=== PATIENT | male | born 1940 | race Caucasian/White ===

== ENCOUNTER 2016-04-15 09:49 | Outpatient (RCR) | payer MEDICARE | END 2016-04-29 | LOC: M PT 09:49 | PROVIDERS: ATTEND Family Medicine | DX: M25.552 Pain in left hip (principal) | CPT/HCPCS: 97110; 97161; G8978; G8979; G8980 ==

== ENCOUNTER → 2016-05-13 | Outpatient (CLI) | payer MEDICARE ==
[~2016-05-13] MED LIST: ASPI1TAB PO; ATOR1TAB18 PO; CARV6.25 PO; CHLO25TA PO; FLOM5CAP PO; HYDR25T PO; LISI-538 PO; PROS5TAB PO; SERT25TA85 PO
--- NOTE | 2016-05-13 09:16 | REP ---
Clinical: Preoperative assessment . Comparison: 12/10/2005 of Technique: PA and lateral. Findings: The mediastinum and cardiac silhouette are normal. The lung zurita are clear and without acute consolidation, effusion, or pneumothorax. The skeletal structures are intact and normal. Impression: 1. No acute cardiopulmonary process. Signed by Carlos Yi MD 05/13/2016 09:07 A
[2016-05-13 09:50] LABS: INR 0.98
== END ==
LOC: M LAB 08:38
PROVIDERS: ATTEND Family Medicine
DX: Z01.818 Encounter for other preprocedural examination (principal); K40.91 Unilateral inguinal hernia, without obstruction or gangrene, recurrent

== ENCOUNTER → 2016-05-13 | Outpatient (CLI) | payer MEDICARE | LOC: M CARPUL 14:17 | PROVIDERS: ATTEND Family Medicine | DX: Z01.818 Encounter for other preprocedural examination (principal); K40.91 Unilateral inguinal hernia, without obstruction or gangrene, recurrent; I25.2 Old myocardial infarction; Z79.82 Long term (current) use of aspirin; Z79.899 Other long term (current) drug therapy; Z87.891 Personal history of nicotine dependence ==

== ENCOUNTER → 2016-10-10 | Outpatient (CLI) | payer MEDICARE ==
[~2016-10-10] MED LIST changes: -ATOR1TAB18 PO; +ATOR80TA59 PO; +HYDR-3363 PO; -HYDR25T PO; +SERT25TA PO; -SERT25TA85 PO
[2016-10-10 09:13] LABS: MEAN CORPUSCULAR HEMOGLOBIN 34.8 pg (27.0-33.0); MEAN CORPUSCULAR HGB CONC 34.2 g/dl (32.0-36.5); MEAN CORPUSCULAR VOLUME 101.7 fl (80.0-96.0); RED CELL DISTRIBUTION WIDTH 12.8 % (11.5-14.5); WHITE BLOOD COUNT 8.2 K/mm3 (4.0-10.0)
[2016-10-10 09:30] LABS: ALBUMIN 3.6 GM/DL (3.2-5.2); ALBUMIN/GLOBULIN RATIO 1.13 (1.00-1.93); ALKALINE PHOSPHATASE 79 U/L (45-117); ALT/SGPT 41 U/L (12-78); ANION GAP 4 MEQ/L (8-16); AST/SGOT 27 U/L (15-37); BILIRUBIN,TOTAL 0.7 MG/DL (0.2-1.0); BLOOD UREA NITROGEN 14 MG/DL (7-18); CALCIUM LEVEL 8.7 MG/DL (8.8-10.2); CARBON DIOXIDE LEVEL 31 MEQ/L (21-32); CHLORIDE LEVEL 102 MEQ/L (98-107); CREATININE FOR GFR 0.89 MG/DL (0.70-1.30); GLOMERULAR FILTRATION RATE > 60.0 (>42); GLUCOSE, FASTING 83 MG/DL (83-110); POTASSIUM SERUM 4.4 MEQ/L (3.5-5.1); SODIUM LEVEL 137 MEQ/L (136-145); TOTAL PROTEIN 6.8 GM/DL (6.4-8.2)
== END ==
LOC: M LAB 08:17
PROVIDERS: ATTEND Anesthesiology
DX: Z01.818 Encounter for other preprocedural examination (principal); I25.10 Atherosclerotic heart disease of native coronary artery without angina pectoris; N40.0 Benign prostatic hyperplasia without lower urinary tract symptoms; E78.00 Pure hypercholesterolemia, unspecified

== ENCOUNTER → 2016-10-14 | Day surgery (SDC) | payer MEDICARE ==
[~2016-10-14] VITALS: Ht 177.8 cm; Wt 63.5 kg
[~2016-10-14] MED LIST changes: +GLYCOPYRROLATE INJ 0.2 MG/ML 2 ML VIAL As Ordered ONE; +LIDOCAINE 2% INJ 100 MG/5 ML SDV (FOR ANES.) As Ordered ONE; +LR 1,000 ML IV ONE; +LR 1,000 ML IV SCH; +MIDAZOLAM INJ 2 MG/2 ML VIAL (J2250) As Ordered ONE; +MORPHINE 2 MG/ML 1ML SYRINGE IV PRN; +NEOSTIGMINE 1MG/ML 5 ML SYRINGE (J2710) As Ordered ONE; +NORCO, ANEXSIA 5/325MG TABLET (HYDROcodone/ACETAMINOPHEN) PO PRN; +ONDANSETRON 4MG/2ML VIAL (J2405) As Ordered ONE; +ONDANSETRON 4MG/2ML VIAL (J2405) IV PRN; +PERCOCET 5MG/325MG TAB PO PRN; +PROPOFOL 200 MG/20 ML VIAL As Ordered ONE; +ROCURONIUM BROMIDE 50 MG/5 ML VIAL/SYRINGE As Ordered ONE; +SUGAMMADEX SODIUM 500 MG/5 ML VIAL (BRIDION) As Ordered ONE; +ceFAZolin 1GM INJ (J0690) As Ordered ONE; +ceFAZolin SOD 1 GM in D5W MINI-BAG PLUS 50 ML IV ONE; +dexameTHASONE 4 MG/ML 1ML VIAL (J1100) As Ordered ONE; +ePHEDrine SULFATE 25 MG/5 ML(5MG/ML) SYRINGE As Ordered ONE; +fentaNYL 100 MCG/2 ML INJECTION (J3010) As Ordered ONE; +fentaNYL 100 MCG/2 ML INJECTION (J3010) IV PRN
[2016-10-14] MEDS: BUPIVACAINE/EPIN 0.25% 30 ML VIAL As Ordered ONE (11:59)
--- NOTE | 2016-10-14 12:34 | RO ---
DATE OF PROCEDURE: 10/14/2016 PREOPERATIVE DIAGNOSIS: Right inguinal hernia. POSTOPERATIVE DIAGNOSIS: Right inguinal hernia (direct and femoral, both incarcerated). PROCEDURE: Laparoscopic right inguinal hernia repair with 3-D Max mesh (TEPP). SURGEON: Jone Mccormack MD ANESTHESIA: General endotracheal anesthesia. ESTIMATED BLOOD LOSS: Minimal. FLUIDS: Crystalloid. DESCRIPTION OF PROCEDURE: The patient was brought to the operating room and was given general anesthesia. After adequate anesthesia and preoperative antibiotics were given, the patient was prepped and draped in the usual sterile fashion. Next, a periumbilical incision was made with skin knife. Blunt dissection was carried down to fascia. Fascia was incised longitudinally with the electrocautery and the dissection posterior to the rectus muscle was performed by finger dissection and then the balloon dissector was placed in the preperitoneal space and insufflated under direct visualization. Stationary balloon was placed at the umbilicus and under direct visualization two 5 mm trocars were placed. Next, the right inguinal area was dissected out after first going down to the level of the posterior aspect of pubis, visualizing Ming's ligament bilaterally. The posterior bump was appreciated on the pubis. This was followed down to the right side. Following this down along this area was a direct inguinal hernia that was appreciated medial to the vessels. This was taken down using blunt dissection and some electrocautery on the adhesions but the hernia sac was not able to be reduced without tension and eventually this was removed out of the hernia site. Attention was turned lateral to the cord structures and dissection was performed laterally working myself medially. There was very attenuated peritoneum in this area and the portion of the cecum could be appreciated in this area. The distal portion of the peritoneum was adherent to the cord structures and was taken down with hook cautery, taking care to preserve the vessels in the vas. Next, after this was mobilized, it was obvious there were still structures overlying the femoral canal and the medial aspect of Ming's. Following this up medial to the vessels there was an obvious femoral hernia as well. Unfortunately, this was quite incarcerated and needed be partially transected to be delivered back into the preperitoneal space. Once this was eventually mobilized into the preperitoneal space, the 3-D Max mesh was placed on the pubis, lateral aspect of Ming's, and on the tail of the mesh as well. The patient had some mild general oozing from some of the raw surfaces at the posterior aspect of the rectus muscle only and the dissected preperitoneal fat that had come out of the direct hernia, as well as the femoral hernia and thus I used some of this all across this area. Revealed no active bleeding. The preperitoneal space was desufflated under direct visualization. #0 Vicryl was used close fascia at the umbilicus and all incisions were closed with #4-0 Vicryl. Steri-Strips and dry sterile dressing were applied. The patient was awakened, extubated, brought to the recovery room awake, alert, hemodynamically stable. Sponge and needle counts correct times two.
[2016-10-14] MEDS: HYDROmorphone HCL 1 MG/ML SYRINGE (J1170) IV PRN ×5 (12:55→13:15)
[2016-10-14 14:45] VITALS: BP 136/83
== END | disposition home or self-care (01) ==
LOC: M SDC 09:34
PROVIDERS: ATTEND Surgery
DX: K40.31 Unilateral inguinal hernia, with obstruction, without gangrene, recurrent (principal); K41.30 Unilateral femoral hernia, with obstruction, without gangrene, not specified as recurrent; I25.10 Atherosclerotic heart disease of native coronary artery without angina pectoris; I25.2 Old myocardial infarction; Z98.61 Coronary angioplasty status; Z91.030 Bee allergy status; Z79.82 Long term (current) use of aspirin; Z79.899 Other long term (current) drug therapy; I10 Essential (primary) hypertension; E78.5 Hyperlipidemia, unspecified; N40.0 Benign prostatic hyperplasia without lower urinary tract symptoms; F17.210 Nicotine dependence, cigarettes, uncomplicated
CPT/HCPCS: 49650; A6024; C1781; J0690; J1100; J1170; J2250; J2405; J3010

== ENCOUNTER 2016-12-04 06:59 | Outpatient (CLI) | payer MEDICARE ==
[~2016-12-04] VITALS: Ht 177.8 cm; Wt 63.5 kg
[~2016-12-04 06:59] MED LIST changes: -GLYCOPYRROLATE INJ 0.2 MG/ML 2 ML VIAL As Ordered ONE; -LIDOCAINE 2% INJ 100 MG/5 ML SDV (FOR ANES.) As Ordered ONE; -LR 1,000 ML IV ONE; -LR 1,000 ML IV SCH; -MIDAZOLAM INJ 2 MG/2 ML VIAL (J2250) As Ordered ONE; -MORPHINE 2 MG/ML 1ML SYRINGE IV PRN; -NEOSTIGMINE 1MG/ML 5 ML SYRINGE (J2710) As Ordered ONE; -NORCO, ANEXSIA 5/325MG TABLET (HYDROcodone/ACETAMINOPHEN) PO PRN; -ONDANSETRON 4MG/2ML VIAL (J2405) As Ordered ONE; -ONDANSETRON 4MG/2ML VIAL (J2405) IV PRN; -PERCOCET 5MG/325MG TAB PO PRN; -PROPOFOL 200 MG/20 ML VIAL As Ordered ONE; -ROCURONIUM BROMIDE 50 MG/5 ML VIAL/SYRINGE As Ordered ONE; -SUGAMMADEX SODIUM 500 MG/5 ML VIAL (BRIDION) As Ordered ONE; -ceFAZolin 1GM INJ (J0690) As Ordered ONE; -ceFAZolin SOD 1 GM in D5W MINI-BAG PLUS 50 ML IV ONE; -dexameTHASONE 4 MG/ML 1ML VIAL (J1100) As Ordered ONE; -ePHEDrine SULFATE 25 MG/5 ML(5MG/ML) SYRINGE As Ordered ONE; -fentaNYL 100 MCG/2 ML INJECTION (J3010) As Ordered ONE; -fentaNYL 100 MCG/2 ML INJECTION (J3010) IV PRN
[2016-12-04] MEDS ORDERED: NS 1,000 ML IV ONE (07:00)
[2016-12-04] MEDS ORDERED: PROPOFOL 500 MG/50 ML VIAL As Ordered ONE (07:48)
[2016-12-04] MEDS ORDERED: LIDOCAINE 2% INJ 100 MG/5 ML SDV (FOR ANES.) As Ordered ONE (07:48)
[2016-12-04] MEDS ORDERED: PHENYLephrine HCL 500 MCG/5 ML (100MCG/ML) SYRINGE (J2370) As Ordered ONE (08:30)
[2016-12-04] MEDS ORDERED: ePHEDrine INJ 50 MG/ML VIAL As Ordered ONE (08:30)
[2016-12-04] MEDS ORDERED: hydrALAZINE INJ 20 MG/ML VIAL As Ordered ONE (08:41)
--- NOTE | 2016-12-04 08:47 | ROOR ---
Patient Name: Tiago Romo Procedure Date: 12/04/2016 8:19 AM Date of : 1940 Age: 76 Room: [facility] Gender: Male Note Status: Finalized Procedure: Colonoscopy Indications: Chronic diarrhea Providers: Jone Mccormack Jr, MD Referring MD: Jone Mccormack Jr, MD Requesting Provider: Medicines: Propofol per Anesthesia Complications: No immediate complications. Procedure: Pre-Anesthesia Assessment: - Prior to the procedure, a History and Physical was performed, and patient medications and allergies were reviewed. The patient is competent. The risks and benefits of the procedure and the sedation options and risks were discussed with the patient. All questions were answered and informed consent was obtained. Patient identification and proposed procedure were verified by the physician and the nurse in the pre-procedure area and in the procedure room. Mental Status Examination: alert and oriented. Airway Examination: normal oropharyngeal airway and neck mobility. Respiratory Examination: clear to auscultation. CV Examination: normal. ASA Grade Assessment: II - A patient with mild systemic disease. After reviewing the risks and benefits, the patient was deemed in satisfactory condition to undergo the procedure. The anesthesia plan was to use moderate sedation / analgesia (conscious sedation). Immediately prior to administration of medications, the patient was re-assessed for adequacy to receive sedatives. The heart rate, respiratory rate, oxygen saturations, blood pressure, adequacy of pulmonary ventilation, and response to care were monitored throughout the procedure. The physical status of the patient was re-assessed after the procedure. The Colonoscope was introduced through the anus and advanced to the cecum, identified by appendiceal orifice and ileocecal valve. The colonoscopy was performed without difficulty. The patient tolerated the procedure well. Findings: Internal hemorrhoids were found during endoscopy. The hemorrhoids were moderate, Grade II (internal hemorrhoids that prolapse but reduce spontaneously) and Grade III (internal hemorrhoids that prolapse but require manual reduction). A few small-mouthed diverticula were found in the sigmoid colon. A small polyp was found in the cecum. The polyp was removed with a jumbo cold forceps. Resection and retrieval were complete. The recto-sigmoid colon, descending colon, transverse colon, ascending colon, appendiceal orifice and ileocecal valve appeared normal. Impression: - Internal hemorrhoids. - Diverticulosis in the sigmoid colon. - One small polyp in the cecum, removed with a jumbo cold forceps. Resected and retrieved. - The recto-sigmoid colon, descending colon, transverse colon, ascending colon, appendiceal orifice and ileocecal valve are normal. Recommendation: - Discharge patient to home (ambulatory). - Repeat colonoscopy in 5-10 years for surveillance based on pathology results. Jone Mccormack MD Jone Mccormack Jr, MD 12/04/2016 8:47:09 AM This report has been signed electronically. Number of Addenda: 0 Note Initiated On: 12/04/2016 8:19 AM Estimated Blood Loss: Estimated blood loss: none.
[2016-12-04 09:14] VITALS: BP 126/70
== END 2016-12-04 09:15 | disposition home or self-care (01) ==
LOC: M OPP 06:59
PROVIDERS: ATTEND Surgery
DX: R19.7 Diarrhea, unspecified (principal); D12.0 Benign neoplasm of cecum; K64.2 Third degree hemorrhoids; K64.1 Second degree hemorrhoids; K57.30 Diverticulosis of large intestine without perforation or abscess without bleeding; I25.10 Atherosclerotic heart disease of native coronary artery without angina pectoris; R07.89 Other chest pain; Z95.5 Presence of coronary angioplasty implant and graft; I25.2 Old myocardial infarction; I10 Essential (primary) hypertension; E78.5 Hyperlipidemia, unspecified; F41.9 Anxiety disorder, unspecified; F32.9 Major depressive disorder, single episode, unspecified; N40.1 Benign prostatic hyperplasia with lower urinary tract symptoms; F17.210 Nicotine dependence, cigarettes, uncomplicated; Z91.030 Bee allergy status; Z79.82 Long term (current) use of aspirin; Z79.899 Other long term (current) drug therapy
CPT/HCPCS: 45380; 88305; J2370

== ENCOUNTER → 2018-08-16 | Outpatient (CLI) | payer MEDICARE ==
[~2018-08-16] MED LIST changes: -ASPI1TAB PO; +ASPI81TA26 PO; +FLOM0.4C39 PO; -FLOM5CAP PO; -SERT25TA PO; +SERT25TA85 PO
== END ==
LOC: M SMT 15:19
PROVIDERS: ATTEND Urology
DX: Z12.5 Encounter for screening for malignant neoplasm of prostate (principal)
CPT/HCPCS: 36415; G0103; G0463

== ENCOUNTER 2021-02-04 04:53 | Emergency (ER) | payer MEDICARE ==
[~2021-02-04] VITALS: Ht 177.8 cm; Wt 58.7 kg
[~2021-02-04 04:53] MED LIST changes: -LISI-538 PO; +LISI20TA33 PO
--- OUTSIDE RECORDS SUMMARY | 2021-02-04 05:01 | CCD ---
Author Author [facility] Organization [facility] Address Unknown Phone Unavailable Care Team Providers Care Plater [employer] Name Role Phone Fons, M Alissa FIBER GLASS WORKER Unavailable Unavailable Fons, M Alissa FIBER GLASS WORKER Unavailable Unavailable Fons, M Alissa FIBER GLASS WORKER Unavailable Unavailable Fons, M Alissa FIBER GLASS WORKER Unavailable Unavailable Fons, M Alissa FIBER GLASS WORKER Unavailable Unavailable Fons, M Alissa FIBER GLASS WORKER Unavailable Unavailable Fons, M Alissa FIBER GLASS WORKER Unavailable Unavailable Fons, M Alissa FIBER GLASS WORKER Unavailable Unavailable Fons, M Alissa FIBER GLASS WORKER Unavailable Unavailable Fons, M Alissa FIBER GLASS WORKER Unavailable Unavailable Fons, M Alissa FIBER GLASS WORKER Unavailable Unavailable Fons, M Alissa FIBER GLASS WORKER Unavailable Unavailable Fons, M Alissa FIBER GLASS WORKER Unavailable Unavailable Fons, M Alissa FIBER GLASS WORKER Unavailable Unavailable Fons, M Alissa FIBER GLASS WORKER Unavailable Unavailable Fons, M Alissa FIBER GLASS WORKER Unavailable Unavailable Fons, M Alissa FIBER GLASS WORKER Unavailable Unavailable Fons, M Alissa FIBER GLASS WORKER Unavailable Unavailable Fons, M Alissa FIBER GLASS WORKER Unavailable Unavailable Fons, M Alissa FIBER GLASS WORKER Unavailable Unavailable Fons, M Alissa FIBER GLASS WORKER Unavailable Unavailable Fons, M Alissa FIBER GLASS WORKER Unavailable Unavailable Fons, M Alissa FIBER GLASS WORKER Unavailable Unavailable Fons, M Alissa FIBER GLASS WORKER Unavailable Unavailable Fons, M Alissa FIBER GLASS WORKER Unavailable Unavailable Fons, M Alissa FIBER GLASS WORKER Unavailable Unavailable Fons, M Alissa FIBER GLASS WORKER Unavailable Unavailable Fons, M Alissa FIBER GLASS WORKER Unavailable Unavailable Fons, M Alissa FIBER GLASS WORKER Unavailable Unavailable Fons, M Alissa FIBER GLASS WORKER Unavailable Unavailable Fons, M Alissa FIBER GLASS WORKER Unavailable Unavailable Fons, M Alissa FIBER GLASS WORKER Unavailable Unavailable Fons, M Alissa FIBER GLASS WORKER Unavailable Unavailable Fons, M Alissa FIBER GLASS WORKER Unavailable Unavailable Fons, M Alissa FIBER GLASS WORKER Unavailable Unavailable Fons, M Alissa FIBER GLASS WORKER Unavailable Unavailable Fons, M Alissa FIBER GLASS WORKER Unavailable Unavailable Fons, M Alissa FIBER GLASS WORKER Unavailable Unavailable Fons, M Alissa FIBER GLASS WORKER Unavailable Unavailable Fons, M Alissa FIBER GLASS WORKER Unavailable Unavailable Fons, M Alissa FIBER GLASS WORKER Unavailable Unavailable Fons, M Alissa FIBER GLASS WORKER Unavailable Unavailable Fons, M Alissa FIBER GLASS WORKER Unavailable Unavailable Fons, M Alissa FIBER GLASS WORKER Unavailable Unavailable Fons, M Alissa FIBER GLASS WORKER Unavailable Unavailable Fons, M Alissa FIBER GLASS WORKER Unavailable Unavailable Fons, M Alissa FIBER GLASS WORKER Unavailable Unavailable Fons, M Alissa FIBER GLASS WORKER Unavailable Unavailable Fons, M Alissa FIBER GLASS WORKER Unavailable Unavailable Fons, M Alissa FIBER GLASS WORKER Unavailable Unavailable Fons, M Alissa FIBER GLASS WORKER Unavailable Unavailable Fons, M Alissa FIBER GLASS WORKER Unavailable Unavailable Fons, M Alissa FIBER GLASS WORKER Unavailable Unavailable Re-disclosure Warning The records that you are about to access may contain information from federally-assisted alcohol or drug abuse programs. If such information is present, then the following federally mandated warning applies: This information has been disclosed to you from records protected by federal confidentiality rules (42 CFR part 2). The federal rules prohibit you from making any further disclosure of this information unless further disclosure is expressly permitted by the written consent of the person to whom it pertains or as otherwise permitted by 42 CFR part 2. A general authorization for the release of medical or other information is NOT sufficient for this purpose. The Federal rules restrict any use of the information to criminally investigate or prosecute any alcohol or drug abuse patient.The records that you are about to access may contain highly sensitive health information, the redisclosure of which is protected by Article 27-F of the [facility] Public Health law. If you continue you may have access to information: Regarding HIV / AIDS; Provided by facilities licensed or operated by the [facility] Office of Mental Health; or Provided by the [facility] Office for People With Developmental Disabilities. If such information is present, then the following [facility] mandated warning applies: This information has been disclosed to you from confidential records which are protected by state law. State law prohibits you from making any further disclosure of this information without the specific written consent of the person to whom it pertains, or as otherwise permitted by law. Any unauthorized further disclosure in violation of state law may result in a fine or penitentiary sentence or both. A general authorization for the release of medical or other information is NOT sufficient authorization for further disc losure. Encounters Encounter Providers Location Date Indications Data Source(s ) Outpatient Attender: Alissa AGGARWAL [email or web address] [id number] 12:00:00 AM EDT - 01/18/2020 10:27:59 AM EDT [facility] Medications Medication Brand Name Start Date Product Form Dose Route Admi nistrative Instructions Pharmacy Instructions Status Indications Reaction Description Data Source(s) 80 mg 01/23/2021 12:00:00 AM EDT tablet 90 TAKE ONE TABLET BY MOUTH EVERY DAY TAKE ONE TABLET BY MOUTH EVERY DAY SOLD: 01/25/2021 [facility] 25 mg 01/10/2021 12:00:00 AM EDT tablet 30 TAKE ONE TABLET BY MOUTH EVERY MORNING TAKE ONE TABLET BY MOUTH EVERY MORNING SOLD: 01/13/2021 [facility] 20 mg 09/18/2020 12:00:00 AM EDT tablet 90 TAKE ONE TABLET BY MOUTH EVERY DAY TAKE ONE TABLET BY MOUTH EVERY DAY SOLD: 09/20/2020 [facility] 80 mg 07/21/2020 12:00:00 AM EDT tablet 90 TAKE ONE TABLET BY MOUTH EVERY DAY TAKE ONE TABLET BY MOUTH EVERY DAY SOLD: 10/22/2020 [facility] 80 mg 07/21/2020 12:00:00 AM EDT tablet 90 TAKE ONE TABLET BY MOUTH EVERY DAY TAKE ONE TABLET BY MOUTH EVERY DAY SOLD: 07/23/2020 [facility] 25 mg 07/13/2020 12:00:00 AM EDT tablet 90 TAKE ONE TABLET BY MOUTH EVERY MORNING TAKE ONE TABLET BY MOUTH EVERY MORNING SOLD: 07/16/2020 [facility] 25 mg 07/13/2020 12:00:00 AM EDT tablet 90 TAKE ONE TABLET BY MOUTH EVERY MORNING TAKE ONE TABLET BY MOUTH EVERY MORNING SOLD: 10/15/2020 [facility] 20 mg 03/21/2020 12:00:00 AM EST tablet 90 TAKE ONE TABLET BY MOUTH EVERY DAY TAKE ONE TABLET BY MOUTH EVERY DAY SOLD: 03/26/2020 [facility] 20 mg 03/21/2020 12:00:00 AM EST tablet 90 TAKE ONE TABLET BY MOUTH EVERY DAY TAKE ONE TABLET BY MOUTH EVERY DAY SOLD: 06/22/2020 [facility] 0.4 mg 01/30/2020 12:00:00 AM EST capsule 30 TAKE ONE CAPSULE BY MOUTH EVERY DAY TAKE ONE CAPSULE BY MOUTH EVERY DAY SOLD: 02/01/2020 [facility] 0.4 mg 01/30/2020 12:00:00 AM EST capsule 30 TAKE ONE CAPSULE BY MOUTH EVERY DAY TAKE ONE CAPSULE BY MOUTH EVERY DAY SOLD: 06/30/2020 [facility] 0.4 mg 01/30/2020 12:00:00 AM EST capsule 30 TAKE ONE CAPSULE BY MOUTH EVERY DAY TAKE ONE CAPSULE BY MOUTH EVERY DAY SOLD: 04/30/2020 [facility] 0.4 mg 01/30/2020 12:00:00 AM EST capsule 30 TAKE ONE CAPSULE BY MOUTH EVERY DAY TAKE ONE CAPSULE BY MOUTH EVERY DAY SOLD: 10/29/2020 [facility] 0.4 mg 01/30/2020 12:00:00 AM EST capsule 30 TAKE ONE CAPSULE BY MOUTH EVERY DAY TAKE ONE CAPSULE BY MOUTH EVERY DAY SOLD: 09/28/2020 [facility] 0.4 mg 01/30/2020 12:00:00 AM EST capsule 30 TAKE ONE CAPSULE BY MOUTH EVERY DAY TAKE ONE CAPSULE BY MOUTH EVERY DAY SOLD: 08/29/2020 [facility] 0.4 mg 01/30/2020 12:00:00 AM EST capsule 30 TAKE ONE CAPSULE BY MOUTH EVERY DAY TAKE ONE CAPSULE BY MOUTH EVERY DAY SOLD: 04/02/2020 [facility] 0.4 mg 01/30/2020 12:00:00 AM EST capsule 30 TAKE ONE CAPSULE BY MOUTH EVERY DAY TAKE ONE CAPSULE BY MOUTH EVERY DAY SOLD: 07/30/2020 [facility] 0.4 mg 01/30/2020 12:00:00 AM EST capsule 30 TAKE ONE CAPSULE BY MOUTH EVERY DAY TAKE ONE CAPSULE BY MOUTH EVERY DAY SOLD: 05/31/2020 [facility] 0.4 mg 01/30/2020 12:00:00 AM EST capsule 30 TAKE ONE CAPSULE BY MOUTH EVERY DAY TAKE ONE CAPSULE BY MOUTH EVERY DAY SOLD: 01/01/2021 [facility] 0.4 mg 01/30/2020 12:00:00 AM EST capsule 30 TAKE ONE CAPSULE BY MOUTH EVERY DAY TAKE ONE CAPSULE BY MOUTH EVERY DAY SOLD: 11/29/2020 [facility] 0.4 mg 01/30/2020 12:00:00 AM EST capsule 30 TAKE ONE CAPSULE BY MOUTH EVERY DAY TAKE ONE CAPSULE BY MOUTH EVERY DAY SOLD: 03/03/2020 [facility] 25 mg 01/18/2020 12:00:00 AM EDT tablet 90 TAKE 1 TABLET BY MOUTH ONCE A DAY IN THE MORNING TAKE 1 TABLET BY MOUTH ONCE A DAY IN THE MORNING SOLD: 04/16/2020 [facility] 80 mg 01/18/2020 12:00:00 AM EDT tablet 90 TAKE ONE TABLET BY MOUTH EVERY DAY TAKE ONE TABLET BY MOUTH EVERY DAY SOLD: 04/23/2020 [facility] 25 mg 01/18/2020 12:00:00 AM EDT tablet 90 TAKE 1 TABLET BY MOUTH ONCE A DAY IN THE MORNING TAKE 1 TABLET BY MOUTH ONCE A DAY IN THE MORNING SOLD: 01/21/2020 [facility] atorvastatin 80 MG Oral Tablet ATORVASTATIN CALCIUM 01/18/2020 1 2:00:00 AM EDT tablet 90 TAKE ONE TABLET BY MOUTH EVERY D AY TAKE ONE TABLET BY MOUTH EVERY DAY SOLD: 01/21/2020 [facility] 20 mg 09/12/2019 12:00:00 AM EDT tablet 90 TAKE ONE TABLET BY MOUTH EVERY DAY TAKE ONE TABLET BY MOUTH EVERY DAY SOLD: 12/15/2019 [facility] 0.4 mg 02/01/2019 12:00:00 AM EST capsule 30 TAKE ONE CAPSULE BY MOUTH EVERY DAY TAKE ONE CAPSULE BY MOUTH EVERY DAY SOLD: 01/03/2020 [facility] Insurance Providers Payer name Policy type / Coverage type Policy ID Covered libertarian ID Covered libertarian's relationship to leung Policy Leung Plan Information MEDICARE BLUE PPO 306 [id number] SP [id number] MEDICARE BLUE PPO 306 [id number] SP [id number] MEDICARE BLUE PPO 306 [id number] SP [id number] MEDICARE BLUE PPO 306 [id number] SP [id number] [facility] MEDICARE [id number] Barbara [id number] MEDICARE BLUE PPO 306 [id number] SP [id number] [facility] OPTIONS [id number] SP [id number] MEDICARE BLUE PPO 306 [id number] SP [id number] [facility] PPO [id number] SP [id number] ANS-Medicare Part B [id number] ANS-Medicare Part B [id number] ANSI-Medicare Part [id number] MEDICARE BLUE PPO [id number] SP [id number] [employer] B [id number] S [id number] Problems, Conditions, and Diagnoses Code Display Name Description Problem Type Effective Dates Data Source(s) F17.210 Nicotine dependence, cigarettes, uncompl icated Nicotine dependence, cigarettes, uncompl Diagnosis 01/18/2020 09:48:37 AM EDT [facility] Z98.61 Coronary angioplasty status Coronary angioplasty statu s Diagnosis 01/18/2020 09:48:37 AM EDT [facility] E78.5 Hyperlipidemia, unspecified Hyperlipidemia, unspecifie d Diagnosis 01/18/2020 09:48:37 AM EDT [facility] I10 Essential (primary) hypertension Essential (primary) h ypertension Diagnosis 01/18/2020 09:48:37 AM EDT [facility] Surgeries/Procedures No Information Results No Information Social History No Information
[2021-02-04 06:25] LABS: BASO # 0.1 10^3/uL (0.0-0.2); BASO % 0.7 % (0.0-1.0); EOS # 0.1 10^3/uL (0.0-0.5); HEMOGLOBIN 12.9 g/dl (13.5-17.5); LYMPH # 1.3 10^3/uL (1.5-5.0); LYMPH % 15.4 % (24.0-44.0); MEAN CORPUSCULAR HEMOGLOBIN 33.8 pg (27.0-33.0); MEAN CORPUSCULAR HGB CONC 34.9 g/dl (32.0-36.5); MEAN CORPUSCULAR VOLUME 96.9 fl (80.0-96.0); MONO # 0.5 10^3/uL (0.0-0.8); MONO % 6.4 % (2.0-8.0); NEUTROPHILS # 6.3 10^3/uL (1.5-8.5); NEUTROPHILS % 76.1 % (36.0-66.0); PLATELET COUNT, AUTOMATED 238 10^3/uL (150-450); RED BLOOD COUNT 3.82 10^6/uL (4.30-6.10); WHITE BLOOD COUNT 8.2 10^3/uL (4.0-10.0)
--- OUTSIDE RECORDS SUMMARY | 2021-02-04 06:35 | CCD ---
Author Author [facility] Address Unknown Phone Unavailable Care Team Providers Care Taper/Finisher Name Role Phone Fons, M Alissa GREASE REMOVER Unavailable Unavailable Fons, M Alissa GREASE REMOVER Unavailable Unavailable Fons, M Alissa GREASE REMOVER Unavailable Unavailable Fons, M Alissa GREASE REMOVER Unavailable Unavailable Fons, M Alissa GREASE REMOVER Unavailable Unavailable Fons, M Alissa GREASE REMOVER Unavailable Unavailable Fons, M Alissa GREASE REMOVER Unavailable Unavailable Fons, M Alissa GREASE REMOVER Unavailable Unavailable Fons, M Alissa GREASE REMOVER Unavailable Unavailable Fons, M Alissa GREASE REMOVER Unavailable Unavailable Fons, M Alissa GREASE REMOVER Unavailable Unavailable Fons, M Alissa GREASE REMOVER Unavailable Unavailable Fons, M Alissa GREASE REMOVER Unavailable Unavailable Fons, M Alissa GREASE REMOVER Unavailable Unavailable Fons, M Alissa GREASE REMOVER Unavailable Unavailable Fons, M Alissa GREASE REMOVER Unavailable Unavailable Fons, M Alissa GREASE REMOVER Unavailable Unavailable Fons, M Alissa GREASE REMOVER Unavailable Unavailable Fons, M Alissa GREASE REMOVER Unavailable Unavailable Fons, M Alissa GREASE REMOVER Unavailable Unavailable Fons, M Alissa GREASE REMOVER Unavailable Unavailable Fons, M Alissa GREASE REMOVER Unavailable Unavailable Fons, M Alissa GREASE REMOVER Unavailable Unavailable Fons, M Alissa GREASE REMOVER Unavailable Unavailable Fons, M Alissa GREASE REMOVER Unavailable Unavailable Fons, M Alissa GREASE REMOVER Unavailable Unavailable Fons, M Alissa GREASE REMOVER Unavailable Unavailable Fons, M Alissa GREASE REMOVER Unavailable Unavailable Fons, M Alissa GREASE REMOVER Unavailable Unavailable Fons, M Alissa GREASE REMOVER Unavailable Unavailable Fons, M Alissa GREASE REMOVER Unavailable Unavailable Fons, M Alissa GREASE REMOVER Unavailable Unavailable Fons, M Alissa GREASE REMOVER Unavailable Unavailable Fons, M Alissa GREASE REMOVER Unavailable Unavailable Fons, M Alissa GREASE REMOVER Unavailable Unavailable Fons, M Alissa GREASE REMOVER Unavailable Unavailable Fons, M Alissa GREASE REMOVER Unavailable Unavailable Fons, M Alissa GREASE REMOVER Unavailable Unavailable Fons, M Alissa GREASE REMOVER Unavailable Unavailable Fons, M Alissa GREASE REMOVER Unavailable Unavailable Fons, M Alissa GREASE REMOVER Unavailable Unavailable Fons, M Alissa GREASE REMOVER Unavailable Unavailable Fons, M Alissa GREASE REMOVER Unavailable Unavailable Fons, M Alissa GREASE REMOVER Unavailable Unavailable Fons, M Alissa GREASE REMOVER Unavailable Unavailable Fons, M Alissa GREASE REMOVER Unavailable Unavailable Fons, M Alissa GREASE REMOVER Unavailable Unavailable Fons, M Alissa GREASE REMOVER Unavailable Unavailable Fons, M Alissa GREASE REMOVER Unavailable Unavailable Fons, M Alissa GREASE REMOVER Unavailable Unavailable Fons, M Alissa GREASE REMOVER Unavailable Unavailable Fons, M Alissa GREASE REMOVER Unavailable Unavailable Fons, M Alissa GREASE REMOVER Unavailable Unavailable Re-disclosure Warning The records that [...] is protected by Article 27-F of the [facility] Public Health law. If you continue you may have access to information: Regarding HIV / AIDS; Provided by facilities licensed or operated by the [facility] Office of Mental Health; or Provided by the [facility] Office for People With Developmental Disabilities. If such information is present, then the following [facility] mandated warning applies: This information has [...] law may result in a fine or half-way sentence or both. A general authorization for the release of medical or other information is NOT sufficient authorization for further disc losure. Encounters Encounter Providers Location Date Indications Data Source(s ) Outpatient Attender: Alissa Loo JASEN [email or web address] [id number] 12:00:00 AM EDT - 01/18/2020 10:27:59 AM EDT [facility] Medications Medication Brand Name Start Date Product [...] type / Coverage type Policy ID Covered constitution party ID Covered constitution party's relationship to leung Policy Leung Plan Information MEDICARE BLUE PPO 306 [id number] SP [id number] MEDICARE BLUE PPO 306 [id number] SP [id number] MEDICARE BLUE PPO 306 [id number] SP [id number] [facility] MEDICARE [id number] [facility] [id number] MEDICARE BLUE PPO 306 [id number] SP [id number] MEDICARE BLUE PPO 306 [id number] SP [id number] [facility] OPTIONS [id number] SP [id number] MEDICARE BLUE PPO 306 [id number] SP [id number] [facility] PPO 306 [id number] MEDICARE BLUE PPO 306 [id number] ANSI-Medicare Part B [id number] ANSI-Medicare Part B [id number] ANS-Medicare Part B [id number] [facility] B [id number] S [id number] Problems, Conditions, and Diagnoses Code Display Name Description Problem Type Effective Dates Data Source(s) F17.210 Nicotine dependence, cigarettes, uncompl icated Nicotine dependence, cigarettes, uncompl Diagnosis 01/18/2020 09:48:[address] [facility] Z98.61 Coronary angioplasty status Coronary angioplasty statu s Diagnosis 01/18/2020 09:48:[address] [facility] E78.5 Hyperlipidemia, unspecified Hyperlipidemia, unspecifie d Diagnosis 01/18/2020 09:48:[address] [facility] I10 Essential (primary) hypertension Essential (primary) h ypertension Diagnosis 01/18/2020 09:48:[address] [facility] Surgeries/Procedures No Information Results No Information Social History No Information
[2021-02-04 06:54] LABS: ALBUMIN 3.7 GM/DL (3.2-5.2); ALT/SGPT 40 U/L (12-78); BILIRUBIN,DIRECT 0.4 MG/DL (0.0-0.2); BILIRUBIN,TOTAL 1.7 MG/DL (0.2-1.0); BLOOD UREA NITROGEN 13 MG/DL (7-18); CALCIUM LEVEL 8.8 MG/DL (8.8-10.2); CARBON DIOXIDE LEVEL 25 MEQ/L (21-32); CHLORIDE LEVEL 102 MEQ/L (98-107); CREATININE FOR GFR 0.86 MG/DL (0.70-1.30); GLOMERULAR FILTRATION RATE > 60.0 (>42); GLUCOSE, FASTING 97 MG/DL (70-100); LIPASE 77 U/L (73-393); POTASSIUM SERUM 3.3 MEQ/L (3.5-5.1); SODIUM LEVEL 136 MEQ/L (136-145); TOTAL PROTEIN 7.1 GM/DL (6.4-8.2)
[2021-02-04] MEDS ORDERED: BACT800T5 PO (07:50)
[2021-02-04] MEDS ORDERED: TAMS1CAP17 PO (07:57)
[2021-02-04] MEDS ORDERED: TAMSULOSIN 0.4 MG CAP PO ONE (08:00)
[2021-02-04] MEDS ORDERED: BACTRIM 160MG/800MG DS TAB PO ONE (08:00)
[2021-02-04 08:45] VITALS: BP 140/76
== END 2021-02-04 08:48 | disposition home or self-care (01) ==
LOC: M ED 04:53
DX: N40.1 Benign prostatic hyperplasia with lower urinary tract symptoms (principal); N39.0 Urinary tract infection, site not specified; R31.9 Hematuria, unspecified; R33.9 Retention of urine, unspecified; I25.2 Old myocardial infarction; I10 Essential (primary) hypertension; F17.200 Nicotine dependence, unspecified, uncomplicated; Z91.030 Bee allergy status; Z79.82 Long term (current) use of aspirin; Z79.899 Other long term (current) drug therapy

== ENCOUNTER → 2021-03-21 | Outpatient (CLI) | payer MEDICARE ==
[~2021-03-21] MED LIST changes: +BACT800T5 PO; +TAMS1CAP17 PO
[2021-03-21 18:11] LABS: BASO # 0.1 10^3/uL (0.0-0.2); BASO % 1.2 % (0.0-1.0); EOS # 0.4 10^3/uL (0.0-0.5); EOS % 4.7 % (0.0-3.0); HEMATOCRIT 37.5 % (42.0-52.0); HEMOGLOBIN 12.5 g/dl (13.5-17.5); LYMPH # 1.7 10^3/uL (1.5-5.0); LYMPH % 23.3 % (24.0-44.0); MEAN CORPUSCULAR HEMOGLOBIN 33.9 pg (27.0-33.0); MEAN CORPUSCULAR HGB CONC 33.3 g/dl (32.0-36.5); MEAN CORPUSCULAR VOLUME 101.6 fl (80.0-96.0); MONO # 0.5 10^3/uL (0.0-0.8); MONO % 7.2 % (2.0-8.0); NEUTROPHILS # 4.7 10^3/uL (1.5-8.5); NEUTROPHILS % 63.3 % (36.0-66.0); PLATELET COUNT, AUTOMATED 246 10^3/uL (150-450); RED BLOOD COUNT 3.69 10^6/uL (4.30-6.10); WHITE BLOOD COUNT 7.4 10^3/uL (4.0-10.0)
[2021-03-21 18:36] LABS: BLOOD UREA NITROGEN 14 MG/DL (7-18); CALCIUM LEVEL 8.9 MG/DL (8.8-10.2); CARBON DIOXIDE LEVEL 29 MEQ/L (21-32); CHLORIDE LEVEL 102 MEQ/L (98-107); CREATININE FOR GFR 0.88 MG/DL (0.70-1.30); GLOMERULAR FILTRATION RATE > 60.0 (>42); GLUCOSE, FASTING 98 MG/DL (70-100); POTASSIUM SERUM 4.6 MEQ/L (3.5-5.1); SODIUM LEVEL 136 MEQ/L (136-145); THYROID STIMULATING HORMONE 0.651 uIU/ML (0.358-3.740)
[2021-03-21 19:11] LABS: HEMOGLOBIN A1c 5.5 %
== END ==
LOC: M PLALAB 14:25
PROVIDERS: ATTEND Student in an Organized Health Care Education/Training Program
DX: H53.8 Other visual disturbances (principal); Z79.899 Other long term (current) drug therapy

== ENCOUNTER → 2021-06-12 | Outpatient (CLI) | payer MEDICARE | LOC: M RAD 10:04 | PROVIDERS: ATTEND Student in an Organized Health Care Education/Training Program | DX: Z12.2 Encounter for screening for malignant neoplasm of respiratory organs (principal); F17.210 Nicotine dependence, cigarettes, uncomplicated ==

== ENCOUNTER → 2021-09-16 | Outpatient (REF) | payer MEDICARE | LOC: M SFHCPLAZ 12:48 | PROVIDERS: ATTEND Family Medicine | DX: D64.9 Anemia, unspecified (principal); I10 Essential (primary) hypertension ==

== ENCOUNTER → 2021-09-18 | Outpatient (CLI) | payer MEDICARE ==
[2021-09-18 13:22] LABS: BASO # 0.1 10^3/uL (0.0-0.2); BASO % 1.2 % (0.0-1.0); EOS # 0.3 10^3/uL (0.0-0.5); EOS % 3.4 % (0.0-3.0); HEMOGLOBIN 13.8 g/dl (13.5-17.5); LYMPH # 1.5 10^3/uL (1.5-5.0); LYMPH % 18.8 % (24.0-44.0); MEAN CORPUSCULAR HEMOGLOBIN 32.9 pg (27.0-33.0); MEAN CORPUSCULAR HGB CONC 33.7 g/dl (32.0-36.5); MEAN CORPUSCULAR VOLUME 97.9 fl (80.0-96.0); MONO # 0.4 10^3/uL (0.0-0.8); MONO % 4.9 % (2.0-8.0); NEUTROPHILS # 5.8 10^3/uL (1.5-8.5); NEUTROPHILS % 71.3 % (36.0-66.0); PLATELET COUNT, AUTOMATED 237 10^3/uL (150-450); RED BLOOD COUNT 4.19 10^6/uL (4.30-6.10); WHITE BLOOD COUNT 8.2 10^3/uL (4.0-10.0)
[2021-09-18 13:42] LABS: BLOOD UREA NITROGEN 13 MG/DL (7-18); CALCIUM LEVEL 9.2 MG/DL (8.8-10.2); CARBON DIOXIDE LEVEL 29 MEQ/L (21-32); CHLORIDE LEVEL 101 MEQ/L (98-107); CREATININE FOR GFR 0.92 MG/DL (0.70-1.30); GLOMERULAR FILTRATION RATE > 60.0 (>42); GLUCOSE, FASTING 118 MG/DL (70-100); IRON (FE) 71 UG/DL (65-175); PERCENT SATURATION 26.1 % (19.7-50.0); POTASSIUM SERUM 4.6 MEQ/L (3.5-5.1); SODIUM LEVEL 137 MEQ/L (136-145); TOTAL IRON BINDING CAPACITY 272 UG/DL (250-450)
[2021-09-18 13:43] LABS: FERRITIN 280 NG/ML (26-388)
== END ==
LOC: M PLAIMG 10:13
PROVIDERS: ATTEND Student in an Organized Health Care Education/Training Program
DX: D64.9 Anemia, unspecified (principal); K59.00 Constipation, unspecified

== ENCOUNTER → 2021-09-24 | Outpatient (CLI) | payer MEDICARE | LOC: M PLAIMG 08:23 | PROVIDERS: ATTEND Student in an Organized Health Care Education/Training Program | DX: K59.00 Constipation, unspecified (principal) ==

== ENCOUNTER → 2021-10-04 | Outpatient (CLI) | payer MEDICARE | LOC: M RAD 09:07 | PROVIDERS: ATTEND Physician Assistant | DX: R42 Dizziness and giddiness (principal); H53.9 Unspecified visual disturbance ==

== ENCOUNTER → 2022-01-15 | Outpatient (CLI) | payer MEDICARE ==
[2022-01-15 13:47] LABS: HEMATOCRIT 38.1 % (42.0-52.0); HEMOGLOBIN 13.1 g/dl (13.5-17.5); MEAN CORPUSCULAR HEMOGLOBIN 33.6 pg (27.0-33.0); MEAN CORPUSCULAR HGB CONC 34.4 g/dl (32.0-36.5); MEAN CORPUSCULAR VOLUME 97.7 fl (80.0-96.0); PLATELET COUNT, AUTOMATED 234 10^3/uL (150-450); WHITE BLOOD COUNT 7.7 10^3/uL (4.0-10.0)
[2022-01-15 14:16] LABS: ALT/SGPT 26 U/L (12-78); BLOOD UREA NITROGEN 12 MG/DL (7-18); CALCIUM LEVEL 8.8 MG/DL (8.8-10.2); CARBON DIOXIDE LEVEL 30 MEQ/L (21-32); CHLORIDE LEVEL 101 MEQ/L (98-107); CHOLESTEROL LEVEL 107 MG/DL (<200); CREATININE FOR GFR 0.81 MG/DL (0.70-1.30); GLOMERULAR FILTRATION RATE > 60.0 (>42); GLUCOSE, FASTING 92 MG/DL (70-100); HDL CHOLESTEROL 71 MG/DL (>40); POTASSIUM SERUM 4.6 MEQ/L (3.5-5.1); SODIUM LEVEL 135 MEQ/L (136-145); TRIGLYCERIDES LEVEL 47 MG/DL (<150)
[2022-01-15 14:17] LABS: ALBUMIN 3.8 GM/DL (3.2-5.2); CHOLESTEROL RISK RATIO 1.507 (<5); LDL CHOLESTEROL 27 MG/DL (<100); NON-HDL-C 36 MG/DL; TOTAL PROTEIN 6.8 GM/DL (6.4-8.2)
[2022-01-15 14:30] LABS: HEMOGLOBIN A1c 5.7 %
[2022-01-15 14:55] LABS: TOTAL 25(OH) VITAMIN D 50.2 NG/ML (30.0-100.0)
[2022-01-15 14:56] LABS: VITAMIN B12 LEVEL 306 PG/ML (247-911)
== END ==
LOC: M PLALAB 11:39
PROVIDERS: ATTEND Student in an Organized Health Care Education/Training Program
DX: Z00.00 Encounter for general adult medical examination without abnormal findings (principal); Z79.899 Other long term (current) drug therapy

== ENCOUNTER → 2022-04-01 | Outpatient (CLI) | payer MEDICARE ==
[~2022-04-01] MED LIST changes: +E-Z-GAS II EFFERVESCENT PACKET (SODIUM BICARB./CITRIC ACID/SIMETHICONE) As Ordered ONE; +E-Z-HD 98% w/w 340GM SUSP BTL As Ordered ONE; +E-Z-PAQUE 96% w/w SUSP 176GM BTL As Ordered ONE
== END ==
LOC: M RAD 08:27
PROVIDERS: ATTEND Student in an Organized Health Care Education/Training Program
DX: E07.9 Disorder of thyroid, unspecified (principal)

== ENCOUNTER → 2022-08-29 | Outpatient (CLI) | payer OTHER, MEDICAID ==
[~2022-08-29] MED LIST changes: -E-Z-GAS II EFFERVESCENT PACKET (SODIUM BICARB./CITRIC ACID/SIMETHICONE) As Ordered ONE; -E-Z-HD 98% w/w 340GM SUSP BTL As Ordered ONE; -E-Z-PAQUE 96% w/w SUSP 176GM BTL As Ordered ONE
== END ==
LOC: M PLAIMG 09:01
PROVIDERS: ATTEND Internal Medicine Pulmonary Disease
DX: R06.02 Shortness of breath (principal)

== ENCOUNTER → 2022-12-10 | Outpatient (CLI) | payer OTHER, MEDICAID ==
[~2022-12-10] MED LIST changes: +FINA-48 PO; +LIDOCAINE 1% MDV 20ML VIAL As Ordered ONE; -PROS5TAB PO
[2022-12-10 11:00] VITALS: BP 156/80; TEMP 98.2; O2SAT 100
== END ==
LOC: M IRPRO 10:48
PROVIDERS: ATTEND Student in an Organized Health Care Education/Training Program
DX: E04.9 Nontoxic goiter, unspecified (principal)

== ENCOUNTER → 2023-07-10 | Outpatient (CLI) | payer OTHER, MEDICAID ==
[~2023-07-10] MED LIST changes: -LIDOCAINE 1% MDV 20ML VIAL As Ordered ONE
[2023-07-10 13:25] LABS: HEMATOCRIT 38.4 % (42.0-52.0); HEMOGLOBIN 13.2 g/dl (13.5-17.5); MEAN CORPUSCULAR HEMOGLOBIN 33.3 pg (27.0-33.0); MEAN CORPUSCULAR HGB CONC 34.4 g/dl (32.0-36.5); PLATELET COUNT, AUTOMATED 285 10^3/uL (150-450); RED BLOOD COUNT 3.96 10^6/uL (4.30-6.10); WHITE BLOOD COUNT 9.2 10^3/uL (4.0-10.0)
[2023-07-10 13:58] LABS: ALBUMIN 3.6 G/DL (3.2-5.2); ALKALINE PHOSPHATASE 107 U/L (46-116); ALT/SGPT 20 U/L (7.0-40); AST/SGOT 20 U/L (<34); BLOOD UREA NITROGEN 12 MG/DL (9-23); CALCIUM LEVEL 9.2 MG/DL (8.3-10.6); CARBON DIOXIDE LEVEL 28 MMOL/L (20-31); CHLORIDE LEVEL 97 MMOL/L (98-107); CHOLESTEROL LEVEL 107 MG/DL (<200); CHOLESTEROL RISK RATIO 2.12 (<5); CREATININE FOR GFR 0.85 MG/DL (0.70-1.30); GLOMERULAR FILTRATION RATE > 60.0 (>35); GLUCOSE, FASTING 100 MG/DL (74-106); HDL CHOLESTEROL 50.3 MG/DL (>40); LDL CHOLESTEROL 43.9 MG/DL (<100); NON-HDL-C 56.7 MG/DL; POTASSIUM SERUM 4.2 MMOL/L (3.5-5.1); SODIUM LEVEL 132 MMOL/L (136-145); TOTAL PROTEIN 6.4 G/DL (5.7-8.2); TRIGLYCERIDES LEVEL 64 MG/DL (<150)
[2023-07-10 13:59] LABS: TOTAL 25(OH) VITAMIN D 100.9 NG/ML (20.0-100.0)
[2023-07-10 14:00] LABS: FREE T4 1.17 NG/DL (0.89-1.76)
[2023-07-10 14:20] LABS: HEMOGLOBIN A1c 5.1 % (4.0-6.0)
== END ==
LOC: M PLALAB 07:27
PROVIDERS: ATTEND Student in an Organized Health Care Education/Training Program
DX: E04.9 Nontoxic goiter, unspecified (principal); E55.9 Vitamin D deficiency, unspecified; F17.200 Nicotine dependence, unspecified, uncomplicated; E78.5 Hyperlipidemia, unspecified; I25.10 Atherosclerotic heart disease of native coronary artery without angina pectoris; E78.2 Mixed hyperlipidemia; Z13.1 Encounter for screening for diabetes mellitus

== ENCOUNTER → 2023-07-10 | Outpatient (CLI) | payer OTHER, MEDICAID ==
[2023-07-10 13:23] LABS: HEMATOCRIT 38.9 % (42.0-52.0); HEMOGLOBIN 13.3 g/dl (13.5-17.5); MEAN CORPUSCULAR HGB CONC 34.2 g/dl (32.0-36.5); MEAN CORPUSCULAR VOLUME 96.5 fl (80.0-96.0); PLATELET COUNT, AUTOMATED 285 10^3/uL (150-450); RED BLOOD COUNT 4.03 10^6/uL (4.30-6.10); WHITE BLOOD COUNT 9.6 10^3/uL (4.0-10.0)
[2023-07-10 13:51] LABS: ALBUMIN 3.5 G/DL (3.2-5.2); ALKALINE PHOSPHATASE 108 U/L (46-116); ALT/SGPT 17 U/L (7.0-40); AST/SGOT 20 U/L (<34); BLOOD UREA NITROGEN 12 MG/DL (9-23); CALCIUM LEVEL 9.2 MG/DL (8.3-10.6); CARBON DIOXIDE LEVEL 29 MMOL/L (20-31); CHLORIDE LEVEL 97 MMOL/L (98-107); CHOLESTEROL LEVEL 105 MG/DL (<200); CHOLESTEROL RISK RATIO 2.11 (<5); CREATININE FOR GFR 0.87 MG/DL (0.70-1.30); GLOMERULAR FILTRATION RATE > 60.0 (>35); GLUCOSE, FASTING 99 MG/DL (74-106); HDL CHOLESTEROL 49.7 MG/DL (>40); LDL CHOLESTEROL 42.9 MG/DL (<100); NON-HDL-C 55.3 MG/DL; POTASSIUM SERUM 4.1 MMOL/L (3.5-5.1); SODIUM LEVEL 132 MMOL/L (136-145); TOTAL PROTEIN 6.4 G/DL (5.7-8.2); TRIGLYCERIDES LEVEL 62 MG/DL (<150)
== END ==
LOC: M PLALAB 07:30
PROVIDERS: ATTEND Physician Assistant
DX: I25.10 Atherosclerotic heart disease of native coronary artery without angina pectoris (principal); E78.2 Mixed hyperlipidemia

== ENCOUNTER → 2023-07-21 | Outpatient (CLI) | payer OTHER, MEDICAID ==
[2023-07-21 14:00] LABS: BASO # 0.1 10^3/uL (0.0-0.2); BASO % 1.4 % (0.0-1.0); EOS # 0.2 10^3/uL (0.0-0.5); EOS % 2.6 % (0.0-3.0); HEMOGLOBIN 13.3 g/dl (13.5-17.5); LYMPH # 1.6 10^3/uL (1.5-5.0); MEAN CORPUSCULAR HEMOGLOBIN 33.1 pg (27.0-33.0); MEAN CORPUSCULAR HGB CONC 34.1 g/dl (32.0-36.5); MONO # 0.4 10^3/uL (0.0-0.8); MONO % 5.9 % (2.0-8.0); NEUTROPHILS % 67.8 % (36.0-66.0); PLATELET COUNT, AUTOMATED 304 10^3/uL (150-450); RED BLOOD COUNT 4.02 10^6/uL (4.30-6.10); WHITE BLOOD COUNT 7.4 10^3/uL (4.0-10.0)
[2023-07-21 14:23] LABS: FOLATE 17.4 NG/ML (>5.4)
[2023-07-21 14:27] LABS: PERCENT SATURATION 23.2 % (19.7-50.0)
== END ==
LOC: M PLALAB 10:17
PROVIDERS: ATTEND Student in an Organized Health Care Education/Training Program
DX: D64.9 Anemia, unspecified (principal)

== ENCOUNTER → 2023-11-19 | Outpatient (REF) | payer OTHER, MEDICAID ==
[~2023-11-19] MED LIST changes: +OMEP-173 PO; +STOO100C30 PO
== END ==
LOC: M SFHCPLAZ 17:10
PROVIDERS: ATTEND Internal Medicine Hematology
DX: I10 Essential (primary) hypertension (principal); E78.5 Hyperlipidemia, unspecified

== ENCOUNTER 2023-12-03 08:42 | Day surgery (SDC) | payer OTHER, MEDICAID ==
[~2023-12-03] VITALS: Ht 177.8 cm; Wt 62.1 kg
[~2023-12-03 08:42] MED LIST changes: +NS 1,000 ML IV ONE
[2023-12-03] MEDS ORDERED: GLYCOPYRROLATE INJ 0.2 MG/ML 2 ML VIAL As Ordered ONE (08:52)
[2023-12-03] MEDS ORDERED: propofoL 200 MG/20 ML VIAL As Ordered ONE (08:52)
[2023-12-03] MEDS ORDERED: fentaNYL 100 MCG/2 ML INJECTION As Ordered ONE (08:53)
[2023-12-03] MEDS ORDERED: PHENYLephrine 500MCG 5ML (100MCG/ML) SYRINGE As Ordered ONE (10:50)
[2023-12-03 11:11] VITALS: TEMP 96.5
[2023-12-03 11:39] VITALS: BP 100/66; O2SAT 94
== END 2023-12-03 11:40 | disposition home or self-care (01) ==
LOC: M OPP 08:42
PROVIDERS: ATTEND Surgery
DX: K63.5 Polyp of colon (principal); Z86.010 Personal history of colon polyps; K57.30 Diverticulosis of large intestine without perforation or abscess without bleeding; D50.9 Iron deficiency anemia, unspecified; K21.00 Gastro-esophageal reflux disease with esophagitis, without bleeding; K44.9 Diaphragmatic hernia without obstruction or gangrene; K31.89 Other diseases of stomach and duodenum; F17.210 Nicotine dependence, cigarettes, uncomplicated; I10 Essential (primary) hypertension; E78.00 Pure hypercholesterolemia, unspecified; Z80.0 Family history of malignant neoplasm of digestive organs; Z79.1 Long term (current) use of non-steroidal anti-inflammatories (NSAID); Z79.899 Other long term (current) drug therapy
CPT/HCPCS: 43239; 45385; 88305; J1596; J2371; J3010

== ENCOUNTER → 2024-08-02 | Outpatient (REF) | payer MEDICARE, MEDICAID ==
[~2024-08-02] MED LIST changes: -FLOM0.4C39 PO; -NS 1,000 ML IV ONE; +TAMS-18 PO
== END ==
LOC: M SFHCPLAZ 11:21
PROVIDERS: ATTEND Family Medicine
DX: E87.1 Hypo-osmolality and hyponatremia (principal)

== ENCOUNTER → 2024-08-03 | Outpatient (CLI) | payer MEDICARE, MEDICAID ==
[2024-08-03 11:27] LABS: CALCIUM LEVEL 8.6 MG/DL (8.3-10.6); CREATININE FOR GFR 0.98 MG/DL (0.70-1.30); POTASSIUM SERUM 4.1 MMOL/L (3.5-5.1)
== END ==
LOC: M RAD 10:00
DX: E87.1 Hypo-osmolality and hyponatremia (principal); J20.0 Acute bronchitis due to Mycoplasma pneumoniae

== ENCOUNTER → 2024-11-10 | Outpatient (REF) | payer MEDICARE, MEDICAID | LOC: M SFHCPLAZ 11:07 | PROVIDERS: ATTEND Family Medicine | DX: C44.622 Squamous cell carcinoma of skin of right upper limb, including shoulder (principal) ==

== ENCOUNTER → 2024-12-22 | Outpatient (REF) | payer MEDICARE, MEDICAID | LOC: M SFHCPLAZ 15:40 | PROVIDERS: ATTEND Family Medicine | DX: C44.622 Squamous cell carcinoma of skin of right upper limb, including shoulder (principal) ==

== ENCOUNTER 2025-02-07 13:50 | Emergency (ER) | payer MEDICARE, MEDICAID ==
[~2025-02-07] VITALS: Ht 177.8 cm; Wt 65.5 kg
[2025-02-07 13:53] VITALS: TEMP 96.1
[2025-02-07 15:45] VITALS: BP 172/81; O2SAT 96
[2025-02-07] MEDS ORDERED: NS 500 ML IV ONE (16:50)
== END 2025-02-07 17:04 | disposition left against medical advice (07) ==
LOC: M ED 13:50
DX: E86.0 Dehydration (principal); I10 Essential (primary) hypertension; E78.5 Hyperlipidemia, unspecified; K59.00 Constipation, unspecified; Z91.030 Bee allergy status; Z79.82 Long term (current) use of aspirin; Z79.02 Long term (current) use of antithrombotics/antiplatelets; Z79.899 Other long term (current) drug therapy; Z53.9 Procedure and treatment not carried out, unspecified reason

== ENCOUNTER 2025-02-14 16:00 | Inpatient (IN) | payer MEDICARE, MEDICAID ==
[2025-02-14] VITALS (12 sets, daily range): BP systolic 106–148; BP diastolic 55–86; TEMP 97.2; O2SAT 94–96
[2025-02-14] MEDS: IPRATROPIUM 0.5 MG/ALBUTEROL 2.5 MG INH SOL UD 3 ML NEB ONE (16:37)
[2025-02-14] MEDS: ALBUTEROL SULFATE 2.5 MG/0.5 ML INH CONCENTRATE NEB SOLN INH ONE (16:38)
[2025-02-14 16:45] LABS: BASO # 0.1 10^3/uL (0.0-0.2); BASO % 0.6 % (0.0-1.0); EOS # 0.1 10^3/uL (0.0-0.5); EOS % 0.3 % (0.0-3.0); KETONE, URINE AUTO RFX NEGATIVE (NEGATIVE); LYMPH # 0.4 10^3/uL (1.5-5.0); LYMPH % 2.4 % (24.0-44.0); MONO # 0.8 10^3/uL (0.0-0.8); MONO % 4.5 % (2.0-8.0); MUCUS, URINE RFX SMALL (NEGATIVE); NEUTROPHILS # 16.8 10^3/uL (1.5-8.5); NEUTROPHILS % 91.7 % (36.0-66.0); NITRITE, URINE AUTO RFX NEGATIVE (NEGATIVE); PLATELET COUNT, AUTOMATED 262 10^3/uL (150-450); RBC, URINE AUTO RFX 14 /HPF (0-3); SQUAM EPITHELIAL CELL UR AURFX 0 /HPF (0-6)
[2025-02-14] MEDS: ACETAMINOPHEN *IV* 1,000 MG in IV 1 EA IV ONE (16:46)
[2025-02-14 16:47] LABS: VENOUS BASE EXCESS 1.2 (-2.0-2.0); VENOUS HCO3 23.5 MMOL/L (23.0-27.0); VENOUS O2 SATURATION 97.4 % (60.0-80.0); VENOUS PARTIAL PRESSURE CO2 30.4 mmHg (38.0-50.0); VENOUS PARTIAL PRESSURE O2 91.5 mmHg (30.0-50.0); VENOUS PH 7.506 UNITS (7.330-7.430); VENOUS STANDARD HCO3 25.5 MMOL/L; VENOUS TOTAL CO2 24.4 MMOL/L (24.0-28.0)
[2025-02-14 17:12] LABS: ALT/SGPT 19.0 U/L (7.0-40); AST/SGOT 21.0 U/L (<34); CALCIUM LEVEL 8.0 MG/DL (8.3-10.6); CARBON DIOXIDE LEVEL 23.0 MMOL/L (20-31); CHLORIDE LEVEL 106.0 MMOL/L (98-107); CK-MB VALUE MASS 2.2 NG/ML (<3.6); CPK CREATINE PHOSPHOKINASE 74.0 U/L (46-171); CREATININE FOR GFR 0.93 MG/DL (0.70-1.30); GLOMERULAR FILTRATION RATE 82.0 (>35); MB/CK RELATIVE INDEX 2.97 (< OR =4); POTASSIUM SERUM 4.0 MMOL/L (3.5-5.1); SODIUM LEVEL 139.0 MMOL/L (136-145)
[2025-02-14 17:16] LABS: THYROXINE (T4) 10.4 UG/DL (4.5-10.9)
[2025-02-14 17:25] LABS: INR 0.97
[2025-02-14 17:34] LABS: LEUKOCYTE ESTERASE UR AUTO RFX 2+ (NEGATIVE); WBC, URINE AUTO RFX 11 /HPF (0-3)
[2025-02-14] MEDS ORDERED: ISOVUE-370 76% 100 ML VIAL As Ordered ONE (17:58)
[2025-02-14] MEDS ORDERED: FAMO40TA3 PO (17:59)
[2025-02-14] MEDS ORDERED: ALBU8.5H INH (17:59)
[2025-02-14] MEDS ORDERED: TRAZ1TAB10 PO (17:59)
[2025-02-14 18:07] LABS: CK-MB VALUE MASS 1.6 NG/ML (<3.6)
[2025-02-14 18:08] LABS: CPK CREATINE PHOSPHOKINASE 66.0 U/L (46-171); MB/CK RELATIVE INDEX 2.42 (< OR =4)
[2025-02-14] MEDS: cefTRIAXone SOD 2 GM in DEXTROSE 5% (D5W) ADV/MINI-BAG 50 ML IV ONE (18:35)
[2025-02-14] MEDS ORDERED: ATOR40TA75 PO (18:56)
[2025-02-14] MEDS ORDERED: MAGN400T2 PO (19:08)
[2025-02-14] MEDS ORDERED: HOME MED LIST COMPLETE! XX SCH (19:10)
[2025-02-14] MEDS ORDERED: IPRATROPIUM 0.5 MG/ALBUTEROL 2.5 MG INH SOL UD 3 ML NEB PRN (20:30)
[2025-02-14] MEDS ORDERED: DOXYCYCLINE HYCLATE 100 MG TABLET PO SCH (21:00)
[2025-02-14] MEDS: DOXYCYCLINE HYCLATE 100 MG in DEXTROSE 5% (D5W) MINI-BAG PLU 100 ML IV ONE (21:00)
[2025-02-14] MEDS: ASPIRIN 81 MG ENTERIC TABLET PO SCH (21:01)
[2025-02-14] MEDS: DOCUSATE SODIUM 100 MG CAPSULE PO SCH (21:01)
[2025-02-14] MEDS: FAMOTIDINE 20 MG TAB PO SCH (21:01)
[2025-02-14] MEDS: traZODone 50 MG TAB PO SCH (21:01)
[2025-02-14] MEDS: NS (Normal Saline) 0.9% 1,000 ML IV ONE (21:01)
[2025-02-15 05:07] VITALS: BP 116/66; TEMP 98.1; O2SAT 95
[2025-02-15 06:50] LABS: PLATELET COUNT, AUTOMATED 271 10^3/uL (150-450)
[2025-02-15 07:19] LABS: CALCIUM LEVEL 8.2 MG/DL (8.3-10.6); CARBON DIOXIDE LEVEL 23.0 MMOL/L (20-31); CHLORIDE LEVEL 107.0 MMOL/L (98-107); CREATININE FOR GFR 0.82 MG/DL (0.70-1.30); GLOMERULAR FILTRATION RATE 87.7 (>35); POTASSIUM SERUM 3.9 MMOL/L (3.5-5.1); SODIUM LEVEL 141.0 MMOL/L (136-145)
[2025-02-15] MEDS: IPRATROPIUM 0.5 MG/ALBUTEROL 2.5 MG INH SOL UD 3 ML NEB SCH (07:53)
[2025-02-15] MEDS: ATORVASTATIN 20 MG TAB PO SCH (09:25)
[2025-02-15] MEDS: FINASTERIDE 5 MG TAB PO SCH (09:26)
[2025-02-15] MEDS: TAMSULOSIN 0.4 MG CAP PO SCH (09:26)
[2025-02-15] MEDS: DOXYCYCLINE HYCLATE 100 MG TABLET PO SCH (09:26)
[2025-02-15] MEDS: MAGNESIUM OXIDE 400 MG TAB PO SCH (09:27)
[2025-02-15] MEDS: predniSONE 20 MG TAB PO SCH (09:27)
[2025-02-15] MEDS: ENOXAPARIN 40 MG/0.4 ML SYRINGE (J1650 PER 10MG) SC SCH (09:28)
[2025-02-15] MEDS: cefTRIAXone SOD 1 GM in DEXTROSE 5% (D5W) ADV/MINI-BAG 50 ML IV SCH (18:28)
[2025-02-15 20:00] VITALS: BP 145/68; TEMP 97.4; O2SAT 95
[2025-02-15 22:48] VITALS: BP 139/69; TEMP 98.8; O2SAT 96
[2025-02-16 04:51] VITALS: BP 142/72; TEMP 98.6; O2SAT 96
[2025-02-16 08:40] LABS: BASO # 0.0 10^3/uL (0.0-0.2); BASO % 0.2 % (0.0-1.0); EOS # 0.0 10^3/uL (0.0-0.5); EOS % 0.0 % (0.0-3.0); LYMPH # 1.9 10^3/uL (1.5-5.0); LYMPH % 9.2 % (24.0-44.0); MONO # 1.1 10^3/uL (0.0-0.8); MONO % 5.3 % (2.0-8.0); NEUTROPHILS # 17.7 10^3/uL (1.5-8.5); NEUTROPHILS % 84.5 % (36.0-66.0); PLATELET COUNT, AUTOMATED 266 10^3/uL (150-450)
[2025-02-16 09:00] LABS: CALCIUM LEVEL 7.9 MG/DL (8.3-10.6); CARBON DIOXIDE LEVEL 24.0 MMOL/L (20-31); CHLORIDE LEVEL 108.0 MMOL/L (98-107); CREATININE FOR GFR 0.88 MG/DL (0.70-1.30); GLOMERULAR FILTRATION RATE 85.9 (>35); MAGNESIUM LEVEL 1.6 MG/DL (1.8-2.4); POTASSIUM SERUM 3.7 MMOL/L (3.5-5.1); SODIUM LEVEL 142.0 MMOL/L (136-145)
[2025-02-16 20:08] VITALS: BP 140/70; TEMP 98.8; O2SAT 94
[2025-02-16] MEDS: MAG SULF 1GM/100ML (MAG RUN) 1 GM in IV 1 EA IV SCH (20:29)
[2025-02-17 00:12] VITALS: BP 125/65; TEMP 98.8; O2SAT 91
[2025-02-17 04:57] VITALS: BP 132/70; TEMP 97.2; O2SAT 94
[2025-02-17 06:56] LABS: BASO # 0.0 10^3/uL (0.0-0.2); BASO % 0.1 % (0.0-1.0); EOS # 0.0 10^3/uL (0.0-0.5); EOS % 0.1 % (0.0-3.0); LYMPH # 2.2 10^3/uL (1.5-5.0); LYMPH % 14.1 % (24.0-44.0); MONO # 1.0 10^3/uL (0.0-0.8); MONO % 6.3 % (2.0-8.0); NEUTROPHILS # 12.4 10^3/uL (1.5-8.5); NEUTROPHILS % 78.8 % (36.0-66.0); PLATELET COUNT, AUTOMATED 287 10^3/uL (150-450)
[2025-02-17 07:25] LABS: CALCIUM LEVEL 8.2 MG/DL (8.3-10.6); CARBON DIOXIDE LEVEL 24.0 MMOL/L (20-31); CHLORIDE LEVEL 108.0 MMOL/L (98-107); CREATININE FOR GFR 0.93 MG/DL (0.70-1.30); GLOMERULAR FILTRATION RATE 82.0 (>35); MAGNESIUM LEVEL 2.0 MG/DL (1.8-2.4); POTASSIUM SERUM 3.8 MMOL/L (3.5-5.1); SODIUM LEVEL 141.0 MMOL/L (136-145)
[2025-02-17 08:00] VITALS: BP 177/79; TEMP 98.9; O2SAT 97
[2025-02-17 12:00] VITALS: BP 161/75; TEMP 97.1; O2SAT 96
[2025-02-17 20:29] VITALS: BP 156/74; TEMP 98.8; O2SAT 95
[2025-02-18 03:09] VITALS: BP 160/70; TEMP 98.7; O2SAT 96
[2025-02-18 07:24] LABS: BASO # 0.0 10^3/uL (0.0-0.2); BASO % 0.2 % (0.0-1.0); EOS # 0.0 10^3/uL (0.0-0.5); EOS % 0.2 % (0.0-3.0); LYMPH # 2.4 10^3/uL (1.5-5.0); LYMPH % 19.3 % (24.0-44.0); MONO # 0.8 10^3/uL (0.0-0.8); MONO % 6.4 % (2.0-8.0); NEUTROPHILS # 9.1 10^3/uL (1.5-8.5); NEUTROPHILS % 73.1 % (36.0-66.0); PLATELET COUNT, AUTOMATED 303 10^3/uL (150-450)
[2025-02-18 07:56] LABS: CALCIUM LEVEL 8.3 MG/DL (8.3-10.6); CARBON DIOXIDE LEVEL 27.0 MMOL/L (20-31); CHLORIDE LEVEL 107.0 MMOL/L (98-107); CREATININE FOR GFR 0.86 MG/DL (0.70-1.30); GLOMERULAR FILTRATION RATE 86.5 (>35); MAGNESIUM LEVEL 1.8 MG/DL (1.8-2.4); POTASSIUM SERUM 4.1 MMOL/L (3.5-5.1); SODIUM LEVEL 142.0 MMOL/L (136-145)
[2025-02-18 12:03] VITALS: BP 161/74; TEMP 98.7; O2SAT 96
[2025-02-18 21:05] VITALS: BP 154/72; TEMP 97.3; O2SAT 96
[2025-02-19 04:10] VITALS: BP 160/73; TEMP 98.2; O2SAT 96
[2025-02-19 06:16] LABS: BASO # 0.0 10^3/uL (0.0-0.2); BASO % 0.2 % (0.0-1.0); EOS # 0.1 10^3/uL (0.0-0.5); EOS % 0.6 % (0.0-3.0); LYMPH # 2.3 10^3/uL (1.5-5.0); LYMPH % 22.5 % (24.0-44.0); MONO # 0.7 10^3/uL (0.0-0.8); MONO % 6.6 % (2.0-8.0); NEUTROPHILS # 7.1 10^3/uL (1.5-8.5); NEUTROPHILS % 69.6 % (36.0-66.0); PLATELET COUNT, AUTOMATED 306 10^3/uL (150-450)
[2025-02-19 06:42] LABS: CALCIUM LEVEL 8.3 MG/DL (8.3-10.6); CARBON DIOXIDE LEVEL 24.0 MMOL/L (20-31); CHLORIDE LEVEL 109.0 MMOL/L (98-107); CREATININE FOR GFR 0.85 MG/DL (0.70-1.30); GLOMERULAR FILTRATION RATE 86.8 (>35); MAGNESIUM LEVEL 1.7 MG/DL (1.8-2.4); POTASSIUM SERUM 4.1 MMOL/L (3.5-5.1); SODIUM LEVEL 143.0 MMOL/L (136-145)
[2025-02-19] MEDS: CEFDINIR 300 MG CAP PO SCH (10:17)
[2025-02-19] MEDS: predniSONE 20 MG TAB PO SCH (10:18)
[2025-02-19] MEDS: MAG SULF 1GM/100ML (MAG RUN) 1 GM in IV 1 EA IV SCH (10:21)
[2025-02-19 12:14] VITALS: BP 140/69; TEMP 98.6; O2SAT 95
[2025-02-19 20:23] VITALS: BP 119/56; TEMP 98.8; O2SAT 95
[2025-02-20 05:52] VITALS: BP 165/78; TEMP 98.5; O2SAT 98
[2025-02-20 06:47] LABS: BASO # 0.0 10^3/uL (0.0-0.2); BASO % 0.2 % (0.0-1.0); EOS # 0.2 10^3/uL (0.0-0.5); EOS % 1.4 % (0.0-3.0); LYMPH # 2.6 10^3/uL (1.5-5.0); LYMPH % 21.2 % (24.0-44.0); MONO # 0.8 10^3/uL (0.0-0.8); MONO % 6.6 % (2.0-8.0); NEUTROPHILS # 8.4 10^3/uL (1.5-8.5); NEUTROPHILS % 69.8 % (36.0-66.0); PLATELET COUNT, AUTOMATED 315 10^3/uL (150-450)
[2025-02-20 07:14] LABS: CALCIUM LEVEL 7.9 MG/DL (8.3-10.6); CARBON DIOXIDE LEVEL 24.0 MMOL/L (20-31); CHLORIDE LEVEL 110.0 MMOL/L (98-107); CREATININE FOR GFR 0.76 MG/DL (0.70-1.30); GLOMERULAR FILTRATION RATE 89.7 (>35); MAGNESIUM LEVEL 2.0 MG/DL (1.8-2.4); POTASSIUM SERUM 4.1 MMOL/L (3.5-5.1); SODIUM LEVEL 144.0 MMOL/L (136-145)
[2025-02-20] MEDS: BISACODYL 10 MG SUPP PR STA (07:27)
[2025-02-20] MEDS: MAGNESIUM CITRATE 300 ML BTL PO ONE (08:52)
[2025-02-20] MEDS: SENNOSIDES/DOCUSATE SODIUM 8.6 MG/50MG TAB PO SCH (08:54)
[2025-02-20 09:05] VITALS: BP 150/79
[2025-02-20 12:00] VITALS: BP 189/86; TEMP 98; O2SAT 96
[2025-02-20] MEDS ORDERED: PRED10TA2 PO (12:35)
[2025-02-20] MEDS ORDERED: CEFD300CAP PO (12:35)
[2025-02-20] MEDS ORDERED: BISACODYL 10 MG SUPP PR SCH (21:00)
== END 2025-02-20 15:42 | disposition home health service (06) | DRG 195 ==
LOC: EDBD 16:00 → M ED 16:00 → M ED INP 20:20 → M MSPAV 02-15 22:20
PROVIDERS: ADMIT Internal Medicine; ATTEND Student in an Organized Health Care Education/Training Program
DX: J12.9 Viral pneumonia, unspecified (principal); I25.10 Atherosclerotic heart disease of native coronary artery without angina pectoris; I10 Essential (primary) hypertension; J15.9 Unspecified bacterial pneumonia; E78.5 Hyperlipidemia, unspecified; N40.0 Benign prostatic hyperplasia without lower urinary tract symptoms; F17.200 Nicotine dependence, unspecified, uncomplicated; I25.2 Old myocardial infarction; K57.90 Diverticulosis of intestine, part unspecified, without perforation or abscess without bleeding; F41.1 Generalized anxiety disorder; B97.89 Other viral agents as the cause of diseases classified elsewhere; Z66 Do not resuscitate; Z79.899 Other long term (current) drug therapy; Z79.82 Long term (current) use of aspirin; Z91.030 Bee allergy status